=== PATIENT | female | born 1995 | race African-American/Black ===

== ENCOUNTER 2017-06-30 08:41 | Emergency (ER) | payer OTHER ==
[2017-06-30 08:46] VITALS: BP 142/83; BMI 50.1
--- NOTE | 2017-06-30 09:11 | DR.GENAD ---
HPI - PCP Primary Care Physician: GELLER - Complaint/Symptoms Chief Complaint Doctors Comments: Patient presents with a complaint of epigastric pain for two months has not been seen by her pcp. She admits to nausea and epigastric pain, crampy in characerter,sharp. moderate in severity. Chief Complaint:: PT C/OX EPIGASTRIC PAIN WITH N/V. PT STATES SHE HAS BEEN FEELING THIS WAY FOR A FEW MONTHS, BUT THIS AM IT IS UNBEARABLE WITH THE PAIN - Source History Provided: Patient - Mode of Arrival Mode of Arrival: Ambulatory - Timing Onset of Chief Complaint: 06/28/17 PMH - PMH Past Medical History: Yes Past Medical History: Hypertension Past Surgical History: Yes Surgical History: Ortho Surgery - Family History History of Family Medical Conditions: Yes Family Medical History: Diabetes Mellitus, Cancer, Hypertension - Social History Does patient currently use any type of tobacco product: Yes Have you used tobacco products in the last 12 months: Yes Type of Tobacco Use: Cigarettes Does any household member use tobacco: Yes Alcohol Use: None Do you use any recreational Drugs:: No Lives With: Family Lives Where: Home - infectious screening In the last 2 months have you had wt loss of >10#?: NO Have you had fever, night sweats or hemotysis?: No Have you traveled outside the country in the last 6 months?: No Isolation: Standard ROS - Review of Systems Eyes: No Symptoms Reported ENTM: No Symptoms Reported Respiratoy: No Symptoms Reported Cardiovascular: No Symptoms Reported Gastrointestinal/Abdominal: Abdominal Pain, Nausea, Vomiting Genitourinary: No Symptoms Reported Neurological: No Symptoms Reported Musculoskeletal: No Symptoms Reported Integumentary: No Symptoms Reported Hematologic/Lymphatic: No Symptoms Reported Endocrine: No Symptoms Reported Psychiatric: No Symptoms Reported All Other Systems: Reviewed and Negative PE - Vital Signs Vitals: Temperature 97.8 F Pulse Rate 107 Respiratory Rate 18 Blood Pressure 142/83 O2 Sat by Pulse Oximetry 96 - General Limitations: No Limitations General Appearance: Alert, In No Apparent Distress - Head Head Exam: Normal Inspection, Atraumatic - Eyes Eye exam: Normal Appearance, PERRL, EOMI - ENT ENT Exam: Normal Exam External Ear Exam: Normal External Inspection TM/Canal Exam: Bilateral Normal Nose Exam: Normal Nose Exam Mouth Exam: Normal Inspection Throat Exam: Normal Inspection - Neck Neck Exam: Normal Inspection - Chest Chest Inspection: Normal Inspection - Respiratory Respiratory Exam: Normal Lung Sounds Bilat Respiratory Exam: Bilateral Clear to Auscultation - Cardiovascular Cardiovascular Exam: Regular Rate, Normal Rhythm - Abdominal Exam Abdominal Exam: Normal Inspection, Normal Bowel Sounds Abdominal Tenderness: RUQ - Extremities Extremities Exam: Normal Inspection, Full ROM - Back Back Exam: Normal Inspection, Full ROM - Neurologic Neurological Exam: Alert, Oriented X3, CN II-XII Intact - Psychiatric Psychiatric Exam: Normal Affect - Skin Skin Exam: Warm, Dry, Intact Course - Reevaluation 1st: Unchanged ROR - Labs Reviewed Laboratory Results Reviewed?: Yes (UA: wbc 5-10, leuk esterase 3+, rbc 5, H pylori +) Result Diagrams: 06/30/17 09:27 06/30/17 09:27 Laboratory: WBC 6.4 X10^3/uL (3.6-10.0) 06/30/17 09: RBC 4.49 X10^6/uL (3.5-5.4) 06/30/17 09: Hgb 12.1 g/dL (12.0-16.0) 06/30/17 09: Hct 36.3 % (36.0-47.0) 06/30/17 09: MCV 80.9 fL (80.0-100.0) 06/30/17 09: MCH 26.9 pg (27.0-34.0) L 06/30/17 09: MCHC 33.2 g/dL (33.0-35.0) 06/30/17 09: RDW 16.1 % (11.6-16.5) 06/30/17 09: Plt Count 287 X10^3/uL (150.0-450.0) 06/30/17 09: MPV 8.5 fL (7.4-11.0) 06/30/17 09: Neut % 89.8 % (42.0-75.0) H 06/30/17 09: Lymph % 7.0 % (21.0-51.0) L 06/30/17 09:27 [place] % 2.8 % (0.0-13.0) 06/30/17 09: Eos % 0.1 % (0.9-2.9) L 06/30/17 09:27 Baso % 0.3 % (0.2-1.0) 06/30/17 09: Neut # 5.7 x10^3/uL (2.2-4.8) H 06/30/17 09: Lymph # 0.4 X10^3/uL (1.3-2.9) L 06/30/17 09:27 [place] # 0.2 x10^3/uL (0.3-0.8) L 06/30/17 09: Eos # 0.0 x10^3/uL (0.0-0.2) 06/30/17 09: Baso # 0.0 X10^3/uL (0.0-0.1) 06/30/17 09: Absolute Nucleated RBC 0.0 /100WBC 06/30/17 09:27 Sodium 139 mmol/L (136-145) 06/30/17 09:27 Corrected Sodium TNP 06/30/17 09: Potassium 3.7 mmol/L (3.5-5.1) 06/30/17 09: Chloride 104 mmol/L (98-107) 06/30/17 09: Carbon Dioxide 23.5 mmol/L (21-32) 06/30/17 09:27 BUN 7 mg/dL (7-18) 06/30/17 09:27 Creatinine 0.82 mg/dL (0.55-1.02) 06/30/17 09:27 Est GFR (MDRD) Af Amer > 60 (>60) 06/30/17 09:27 Est GFR (MDRD) Non-Af > 60 (>60) 06/30/17 09:27 Glucose 96 mg/dL (65-99) 06/30/17 09: Calcium 8.9 mg/dL (8.5-10.1) 06/30/17 09:27 Corrected Calcium TNP 06/30/17 09:27 Total Bilirubin 0.30 mg/dL (0.2-1.0) 06/30/17 09:27 AST 14 Units/L (15-37) L 06/30/17 09:27 ALT 15 Units/L (12-78) 06/30/17 09:27 Alkaline Phosphatase 77 Units/L (46-116) 06/30/17 09: C-Reactive Protein 42.90 mg/L (0-3.0) H 06/30/17 09: Total Protein 8.0 g/dL (6.4-8.2) 06/30/17 09: Albumin 3.5 g/dL (3.4-5.0) 06/30/17: Globulin 4.5 g/dL (2.5-4.5) 06/30/17: Albumin/Globulin Ratio 0.8 Ratio (1.1-2.1) L 06/30/17: Amylase 72 Units/L (25-115) 06/30/17: Lipase 143 Units/L (73-393) 06/30/17 09: HCG, Qual Negative <10 mIU/mL 06/30/17: Specimen Type Clean catch urine 06/30/17 09:18 Urine Color Yellow (YELLOW) 06/30/17 09:18 Urine Appearance Clear (CLEAR) 06/30/17:18 Urine pH 7.0 (5.0 - 8.0) 06/30/17:18 Ur Specific [place] 1.010 (1.000-1.030) 06/30/17 09:18 Urine Protein 2+ (NEGATIVE) 06/30/17 09:18 Urine Glucose (UA) Negative (NEGATIVE) 06/30/17:18 Urine Ketones Negative (NEGATIVE) 06/30/17:18 Urine Occult Blood 5+ (NEGATIVE) 06/30/17:18 Urine Nitrite Negative (NEGATIVE) 06/30/17 09:18 Urine Bilirubin Negative (NEGATIVE) 06/30/17:18 Urine Urobilinogen 1+ (NORMAL) 06/30/17 09:18 Ur Leukocyte Esterase 3+ (NEGATIVE) 06/30/17 09:18 Urine RBC 30-40 /HPF (NEGATIVE) 06/30/17 09:18 Urine WBC 5-10 /HPF (NEGATIVE) 06/30/17 09:18 Ur Squamous Epith Cells Moderate /HPF (NEGATIVE) 06/30/17 09:18 Urine Bacteria Trace /HPF (NEGATIVE) 06/30/17 09:18 Ur Culture Indicated? No/not indicated 06/30/17 09:18 H. pylori IgG Antibody Positive (NEGATIVE) A 06/30/17: - Diagnosis Discharge Problem: Helicobacter pylori gastritis UTI (urinary tract infection) Qualifiers: Urinary tract infection type: acute cystitis Hematuria presence: with hematuria Qualified Code(s): N30.01 - Acute cystitis with hematuria - Discharge Plan Condition: Stable - Follow ups/Referrals Follow ups/Referrals: LAURYN GELLER [Primary Care Provider] - 3 days - Instructions
[2017-06-30 09:53] LABS: SERUM PREGNANCY TEST, QUAL NEGATIVE <10 mIU/mL
[2017-06-30 09:54] LABS: ALANINE AMINOTRANSFERASE 15 Units/L (12-78); ALBUMIN 3.5 g/dL (3.4-5.0); ALKALINE PHOSPHATASE 77 Units/L (46-116); AMYLASE 72 Units/L (25-115); ASPARTATE AMINO TRANSFERASE 14 Units/L (15-37); BLOOD UREA NITROGEN 7 mg/dL (7-18); CALCIUM 8.9 mg/dL (8.5-10.1); CARBON DIOXIDE 23.5 mmol/L (21-32); CHLORIDE 104 mmol/L (98-107); CREATININE 0.82 mg/dL (0.55-1.02); LIPASE 143 Units/L (73-393); SODIUM 139 mmol/L (136-145); eGFR BLACK RACES > 60 (>60); eGFR NON BLACK RACES > 60 (>60)
[2017-06-30 10:17] LABS: APPEARANCE,URINE CLEAR (CLEAR); BLOOD/HEMOGLOBIN,URINE 5+ (NEGATIVE); COLOR,URINE YELLOW (YELLOW); GLUCOSE, URINE NEGATIVE (NEGATIVE); KETONES,URINE NEGATIVE (NEGATIVE); PROTEIN,URINE 2+ (NEGATIVE)
[2017-06-30 10:17] LABS: BASOPHILS % (AUTO) 0.3 % (0.2-1.0); EOSINOPHILS % (AUTO) 0.1 % (0.9-2.9); HEMATOCRIT 36.3 % (36.0-47.0); HEMOGLOBIN 12.1 g/dL (12.0-16.0); LYMPHOCYTES # (AUTO) 0.4 X10^3/uL (1.3-2.9); MEAN CORPUSCULAR HEMOGLOBIN 26.9 pg (27.0-34.0); MEAN CORPUSCULAR HGB CONC 33.2 g/dL (33.0-35.0); MEAN CORPUSCULAR VOLUME 80.9 fL (80.0-100.0); MEAN PLATELET VOLUME 8.5 fL (7.4-11.0); MONOCYTES # (AUTO) 0.2 x10^3/uL (0.3-0.8); MONOCYTES % (AUTO) 2.8 % (0.0-13.0); NEUTROPHILS # (AUTO) 5.7 x10^3/uL (2.2-4.8); NEUTROPHILS % (AUTO) 89.8 % (42.0-75.0); PLATELET COUNT 287 X10^3/uL (150.0-450.0); RED BLOOD COUNT 4.49 X10^6/uL (3.5-5.4); RED CELL DISTRIBUTION WIDTH 16.1 % (11.6-16.5); WHITE BLOOD COUNT 6.4 X10^3/uL (3.6-10.0)
[2017-06-30 10:18] LABS: BACTERIA,URINE TRACE /HPF (NEGATIVE); BILIRUBIN,URINE NEGATIVE (NEGATIVE); LEUKOCYTE ESTERASE ,URINE 3+ (NEGATIVE); NITRITES,URINE NEGATIVE (NEGATIVE); RBC,URINE 30-40 /HPF (NEGATIVE); SQUAMOUS EPITHELIAL CELL,UR MODERATE /HPF (NEGATIVE); UROBILINOGEN,URINE 1+ (NORMAL)
== END 2017-06-30 10:39 | disposition home or self-care (01) ==
LOC: ER 08:51
DX: N30.01 Acute cystitis with hematuria (principal); B96.81 Helicobacter pylori [H. pylori] as the cause of diseases classified elsewhere
CPT/HCPCS: 36415; 80053; 81001; 82150; 83690; 84703; 85025; 86140; 86677; 99282; 99283